=== PATIENT | female | born 1955 | race Caucasian/White ===

== ENCOUNTER 2022-05-19 17:18 | Emergency (ER) | payer MEDICAID, OTHER ==
[~2022-05-19] VITALS: Ht 162.6 cm; Wt 74.8 kg
[2022-05-19 17:51] VITALS: BP 129/68
[2022-05-19] MEDS ORDERED: KETOROLAC TROMETH 60MG/2ML VIAL IM ONE (20:45)
[2022-05-19] MEDS ORDERED: DexAMETHasone SOD PHOS 10MG/1ML VIAL INJ IM ONE (20:45)
== END 2022-05-19 22:04 | disposition home or self-care (01) ==
LOC: ER 17:18
DX: M54.41 Lumbago with sciatica, right side (principal)
CPT/HCPCS: 96372; 99284; J1100; J1885

== ENCOUNTER 2022-05-27 16:09 | Emergency (ER) | payer MEDICAID ==
[~2022-05-27] VITALS: Ht 157.5 cm; Wt 68.0 kg
[2022-05-27] MEDS ORDERED: KETOROLAC TROMETH 60MG/2ML VIAL IM ONE (16:30)
[2022-05-27 16:41] VITALS: BP 119/79
== END 2022-05-27 17:46 | disposition left against medical advice (07) ==
LOC: ER 16:09 → EDBD 16:09 → ER 17:46
DX: M79.605 Pain in left leg (principal); M79.604 Pain in right leg; Z53.21 Procedure and treatment not carried out due to patient leaving prior to being seen by health care provider
CPT/HCPCS: 72170; 73552; J1885